=== PATIENT | female | born 1950 | race African-American/Black ===

== ENCOUNTER 2018-04-06 11:31 | Emergency (ER) | payer MEDICARE ==
[~2018-04-06] VITALS: Ht 160 cm; Wt 64.0 kg
[~2018-04-06 11:31] MED LIST: AMLO2.5T45 PO; ASPI-1159 PO; ATOR20TA65 PO; LISI-604 PO; plavix PO
[2018-04-06] MEDS ORDERED: ONDANSETRON HCL 4MG/2ML VIAL IV STA (12:30)
[2018-04-06] MEDS ORDERED: SODIUM CHLORIDE 0.9% 1,000 ML IV ONE (12:30)
[2018-04-06 13:31] LABS: BASOPHILS % 0.2 % (0.0-2.0); EOSINOPHILS % 0.3 % (0.0-5.0); HEMATOCRIT. 41.3 % (36.0-48.0); LYMPHOCYTES % 8.9 % (20.0-50.0); MEAN CORPUSCULAR HEMOGLOBIN 30.8 pg (28.0-32.0); MEAN CORPUSCULAR VOLUME 91.2 fL (81.0-99.0); MEAN PLATELET VOLUME 9.1 fl (7.4-10.4); MONOCYTES % 7.4 % (2.0-8.0); NEUTROPHILS % 83.2 % (40.0-76.0); PLATELET 250 x1000/uL (130-400); RED BLOOD CELL COUNT 4.53 mill/uL (4.2-5.4); RED CELL DISTRIBUTION WIDTH 14.3 % (11.6-14.6)
[2018-04-06 13:40] LABS: CHLORIDE 105 mEq/L (98-107)
[2018-04-06] MEDS ORDERED: POTASSIUM CHLORIDE 20MEQ TABLET SR PO ONE (14:00)
[2018-04-06 14:05] LABS: CLARITY URINE CLEAR (CLEAR); COLOR URINE YELLOW (YELLOW); KETONES URINE NEGATIVE (NEGATIVE); LEUKOCYTE ESTERASE URINE NEGATIVE (NEGATIVE); NITRITE URINE NEGATIVE (NEGATIVE); OCCULT BLOOD URINE NEGATIVE (NEGATIVE); PROTEIN URINE NEGATIVE (NEGATIVE); SPECIFIC GRAVITY URINE 1.019 (1.005-1.030); UROBILINOGEN URINE 0.2 E.U./dL (0.2-1.0)
[2018-04-06 16:25] VITALS: BP 135/73
== END 2018-04-06 16:26 | disposition home or self-care (01) ==
LOC: ER 11:46
DX: R11.10 Vomiting, unspecified (principal); R19.7 Diarrhea, unspecified; R10.84 Generalized abdominal pain; I10 Essential (primary) hypertension; I25.10 Atherosclerotic heart disease of native coronary artery without angina pectoris; E11.9 Type 2 diabetes mellitus without complications; Z95.1 Presence of aortocoronary bypass graft
CPT/HCPCS: 36415; 80053; 81003; 83690; 85025; 93005; 96361; 96374; 99285; J2405; J7030

== ENCOUNTER 2019-07-26 00:53 | Emergency (ER) | payer MEDICARE ==
[~2019-07-26] VITALS: Ht 162.6 cm; Wt 74.1 kg
[~2019-07-26 00:53] MED LIST changes: -ASPI-1159 PO; +ASPI-1393 PO
[2019-07-26 02:09] LABS: EOSINOPHILS % 1.3 % (0.0-5.0); HEMATOCRIT. 38.9 % (36.0-48.0); LYMPHOCYTES % 24.3 % (20.0-50.0); MEAN CORPUSCULAR HEMOGLOBIN 30.8 pg (28.0-32.0); MEAN CORPUSCULAR VOLUME 92.1 fL (81.0-99.0); MEAN PLATELET VOLUME 8.5 fl (7.4-10.4); NEUTROPHILS % 64.4 % (40.0-76.0); PLATELET 250 x1000/uL (130-400); RED BLOOD CELL COUNT 4.22 mill/uL (4.2-5.4); RED CELL DISTRIBUTION WIDTH 14.2 % (11.6-14.6)
[2019-07-26 02:13] LABS: CHLORIDE 111 mEq/L (98-107)
[2019-07-26 02:17] LABS: ETHANOL BLOOD < 10 mg/dL
[2019-07-26 02:21] LABS: T4 FREE 0.87 ng/dL (0.76-1.46)
[2019-07-26 02:47] LABS: METHADONE URINE SCREEN NEGATIVE (NEGATIVE); OPIATES URINE SCREEN NEGATIVE (NEGATIVE)
[2019-07-26 02:48] LABS: *AMPHETAMINES SCREEN URINE NEGATIVE (NEGATIVE); *BARBITURATES SCREEN URINE NEGATIVE (NEGATIVE); *BENZODIAZEPINES SCREEN URINE NEGATIVE (NEGATIVE); CANNABINOID URINE SCREEN NEGATIVE (NEGATIVE); PHENCYCLIDINE URINE SCREEN NEGATIVE (NEGATIVE)
[2019-07-26 02:50] LABS: *COCAINE SCREEN URINE NEGATIVE (NEGATIVE)
[2019-07-26 03:48] VITALS: BP 132/66
== END 2019-07-26 05:30 | disposition home or self-care (01) ==
LOC: ER 00:53
DX: F41.9 Anxiety disorder, unspecified (principal); R07.89 Other chest pain; I11.9 Hypertensive heart disease without heart failure; R94.6 Abnormal results of thyroid function studies; Z95.1 Presence of aortocoronary bypass graft; Z79.82 Long term (current) use of aspirin
CPT/HCPCS: 36415; 71045; 80305; 80320; 83880; 84439; 84443; 84484; 93005; 99284; G0480